=== PATIENT | female | born 1945 | race Caucasian/White ===

== ENCOUNTER 2017-03-09 23:52 | Emergency (ER) | payer MEDICARE, MEDICAID ==
[~2017-03-09] VITALS: Ht 157.5 cm; Wt 66.0 kg
[2017-03-10] MEDS ORDERED: IBUPROFEN 600MG TABLET PO ONE (04:30)
[2017-03-10 07:43] VITALS: BP 141/76
== END 2017-03-10 08:43 | disposition home or self-care (01) ==
LOC: ER 23:53
DX: S01.01XA Laceration without foreign body of scalp, initial encounter (principal); R51 Headache; Y93.01 Activity, walking, marching and hiking; W01.118A Fall on same level from slipping, tripping and stumbling with subsequent striking against other sharp object, initial encounter; Y92.098 Other place in other non-institutional residence as the place of occurrence of the external cause; I10 Essential (primary) hypertension; E11.9 Type 2 diabetes mellitus without complications
CPT/HCPCS: 12001; 70450; 99284